=== PATIENT | female | born 2000 | race Caucasian/White ===

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

== ENCOUNTER 2018-05-10 11:53 | Emergency (ER) | payer OTHER ==
[2018-05-10 12:11] VITALS: TEMP 97.9; BMI 35.4
--- NOTE | 2018-05-10 12:38 | PDOC ---
History of Present Illness - General Chief Complaint: Pain Stated Complaint: ABD PAIN Time Seen by Provider: 05/10/18 12:37 - History of Present Illness Initial Comments: 05/10/18 13:45 Ms. oRper is a 17 yo female w/ pmh of PCOS who presents for evaluation of 1 week history of abdominal cramping and vaginal pain with discharge. She reports she typically gets cramping before her period however the vaginal pain concerned her. She has no other complaints at this time. The patient denies chest pain, shortness of breath, headache and dizziness. Denies fever, chills, nausea, vomit, diarrhea and constipation. Denies dysuria, frequency, urgency and hematuria. Allergies: NKDA Past History - Past Medical History Allergies/Adverse Reactions: Allergies Allergy/AdvReac Type Severity Reaction Status Date / Time No Known Allergies Allergy Verified 05/10/18 12:11 Home Medications: Ambulatory Orders Norgestimate-Ethinyl Estradiol [Sprintec 28 Day Tablet] 1 each PO DAILY Clotrimazole [3-Day Vaginal Cream] 21 gm VG DAILY 3 Days #1 cream.appl 05/10/18 COPD: No DVT: No Dementia: No Kidney Stones: Yes - Immunization History Immunization Up to Date: Yes - Suicide/Smoking/Psychosocial Hx Smoking Status: No Smoking History: Never smoked Have you smoked in the past 12 months: No Number of Cigarettes Smoked Daily: 0 Cigars Per Day: 0 Information on smoking cessation initiated: No Hx Alcohol Use: No Drug/Substance Use Hx: No Substance Use Type: None Review of Systems - Review of Systems Comments:: 05/10/18 13:46 GENERAL/CONSTITUTIONAL: No fever or chills. No weakness. HEAD, EYES, EARS, NOSE AND THROAT: No change in vision. No ear pain or discharge. No sore throat. CARDIOVASCULAR: No chest pain or shortness of breath RESPIRATORY: No cough, wheezing, or hemoptysis. GASTROINTESTINAL: No nausea, vomiting, diarrhea or constipation. GENITOURINARY: +Dysuria for the past week as well as vaginal pain constantly MUSCULOSKELETAL: No joint or muscle swelling or pain. No neck or back pain. SKIN: No rash NEUROLOGIC: No headache, vertigo, loss of consciousness, or change in strength/ sensation. ENDOCRINE: No increased thirst. No abnormal weight change HEMATOLOGIC/LYMPHATIC: No anemia, easy bleeding, or history of blood clots. ALLERGIC/IMMUNOLOGIC: No hives or skin allergy. *Physical Exam - Vital Signs Last Vital Signs Temp Pulse Resp BP Pulse Ox 97.9 F 66 16 142/70 100 05/10/18 11:55 05/10/18 11:55 05/10/18 11:55 05/10/18 11:55 05/10/18 11:55 - Physical Exam Comments: 05/10/18 13:46 GENERAL: Awake, alert, and fully oriented, in no acute distress HEAD: No signs of trauma, normocephalic, atraumatic EYES: PERRLA, EOMI, sclera anicteric, conjunctiva clear ENT: Auricles normal inspection, hearing grossly normal, nares patent, oropharynx clear without exudates. Moist mucosa NECK: Normal ROM, supple, no lymphadenopathy, JVD, or masses LUNGS: No distress, speaks full sentences, clear to auscultation bilaterally HEART: Regular rate and rhythm, normal S1 and S2, no murmurs, rubs or gallops, peripheral pulses normal and equal bilaterally. ABDOMEN: Soft, nontender, normoactive bowel sounds. No guarding, no rebound. No masses EXTREMITIES: Normal inspection, Normal range of motion, no edema. No clubbing or cyanosis. NEUROLOGICAL: Cranial nerves II through XII grossly intact. Normal speech, normal gait, no focal sensorimotor deficits SKIN: Warm, Dry, normal turgor, no rashes or lesions noted. : +White thick discharge noted. No CMT, no adnexal tenderness, no blood noted in vaginal vault, os closed. Medical Decision Making - Medical Decision Making 05/10/18 17:16 Ms. Roper is a 17 yo female w/ pmh as described who presents for evaluation of vaginal pain. Patient found to have yeast infection on exam. Clotrimazole given for treatment. Patient also noted to be ; transvaginal exam unable to appreciate. Discharging patient w/ instructions to f/u in 2 days for repeat evaluation. Patient verbalized understanding and agreement and will comply. *DC/Admit/Observation/Transfer Diagnosis at time of Disposition: Vaginal pain Qualifiers: Weeks of gestation: less than 8 weeks Qualified Code(s): Z3A.01 - Less than 8 weeks gestation of - Discharge Dispostion Disposition: HOME - Prescriptions Prescriptions: Clotrimazole [3-Day Vaginal Cream] 21 gm VG DAILY 3 Days #1 cream.appl - Referrals Referrals: Pritesh Arndt MD [Primary Care Provider] - - Patient Instructions Printed Discharge Instructions: DI for -- Discomforts and Remedies Additional Instructions: Please return in 2 days for further evaluation. Take all medications as proscribed. Return to ER if any increase in pain, fever, chills, or other concerning symptoms. - Post Discharge Activity
[2018-05-10 13:47] LABS: URINE APPEARANCE CLEAR; URINE BILIRUBIN NEGATIVE (<2.0 mg/dL); URINE COLOR YELLOW; URINE GLUCOSE (UA) NEGATIVE (NEGATIVE); URINE KETONE NEGATIVE (NEGATIVE); URINE NITRITE NEGATIVE (NEGATIVE); URINE PROTEIN NEGATIVE (NEGATIVE); URINE UROBILINOGEN NEGATIVE mg/dL (0.2-1.0)
[2018-05-10 13:50] LABS: HCG,QUALITATIVE URINE INDETERMINATE
[2018-05-10 13:52] LABS: URINE LEUK ESTERASE 3+ (NEGATIVE)
[2018-05-10 14:02] LABS: EPI CELLS MANY /HPF (FEW); URINE MUCUS RARE
--- NOTE | 2018-05-10 14:59 | PDOC ---
Attending Attestation - HPI HPI: 05/10/18 15:09 The patient is a 17-year-old female, with a past medical history of kidney stones and PCOS, who presents to the ED with 1 week of abdominal cramping and vaginal discharge. The patient denies any fever, chills, nausea, vomiting, or diarrhea. Denies any dysuria, frequency, urgency, hesitancy, or hematuria. Allergies: NKA Surgical History: None reported Social History: None reported PCP: Dr. Pritesh Arndt - Physicial Exam PE: 05/10/18 15:10 Vitals: Triage Vital signs reviewed General Appearance: no acute distress, well nourished well developed, Head: Atraumatic, normocephalic Eyes: Pupils equal reactive round, extraocular movement intact Neck: Supple;No Nuchal rigidity Chest Wall: Nontender Cardiac: Regular rate and rhythm, no murmurs, no rubs, no gallops, Lungs: Clear to auscultation bilateral, good air movement bilaterally, Abdomen: Soft, nondistended, normal bowel sounds, nontender to palpation Rectal: Exam deferred Extremities: Full range of motion to all extremities, no cyanosis, clubbing, or edema Skin: Warm and dry, no rashes or lesions, no petechiae Psych: normal mood, normal affect - Medical Decision Making 05/10/18 15:20 Plan: -Labs -[facility] [place] The patient is a 17-year-old female, with a past medical history of kidney stones and PCOS, who presents to the ED with 1 week of abdominal cramping and vaginal discharge. <Yessica Camejo - Last Filed: 05/10/18 17:04> - Resident Resident Name: Guzman Lazaro - ED Attending Attestation I have performed the following: I have examined & evaluated the patient, The case was reviewed & discussed with the resident, I agree w/resident's findings & plan, Exceptions are as noted - Medical Decision Making Patient presents with crampy abdominal discomfort and vaginal discharge consistent with Ke[place] infection. Well-appearing no apparent distress no abdominal discomfort. Patient's laboratory analysis notable for very slightly detectable hCG her ultrasound demonstrates no intrauterine Differential diagnosis includes very early versus ectopic Patient advised return to the ED or follow-up with her [employer] in 2 days for repeat blood work and repeat ultrasound Very strict ectopic return precautions discussed with patient. Findings, need for follow-up and strict return instructions discussed. <Chris Ascencio - Last Filed: 05/10/18 19:22> Attestations - Attestations 05/10/18 15:10 Documentation prepared by Yessica Camejo, acting as medical coding auditor for Chris Ascencio MD. <Yessica Camejo - Last Filed: 05/10/18 17:04>
[2018-05-10 17:27] VITALS: BP 132/65; PULSE 63
== END 2018-05-10 17:27 | disposition home or self-care (01) ==
LOC: JER 11:53
DX: O26.891 Other specified pregnancy related conditions, first trimester (principal); O98.811 Other maternal infectious and parasitic diseases complicating pregnancy, first trimester; B37.3 Candidiasis of vulva and vagina; Z3A.01 Less than 8 weeks gestation of pregnancy
CPT/HCPCS: 36415; 76817-TC; 81003; 81015; 84702; 84703; 87086; 99283-25

== ENCOUNTER 2019-01-03 19:19 | Emergency (ER) | payer OTHER ==
[2019-01-03 19:32] VITALS: BP 141/89; PULSE 74; TEMP 98.4; BMI 34.5
--- NOTE | 2019-01-03 19:36 | PDOC ---
History of Present Illness - History of Present Illness Initial Comments: The patient is a 18 year old female, with a significant PMH of UTI, kidney stones, PCOS, who presents to the emergency department today complaining of a headache for 1 week, and abdominal pain for 4 days. Patient notes that her headache began last week, without any specific cause. She notes it has gotten progressively worse, and rates it as a 10/10. She reports associated lightheadedness, room-spinning dizziness, photophobia, nausea (without vomit), and generalized weakness. Patient has tried Tylenol without relief. Patient also notes diffuse abdominal pain that began 4 days ago. She reports that the pain is worst in bilateral lower quadrants, and radiates to her right flank. Patient was treated for a UTI 1 month ago at an Urgent Care, and notes the symptoms feel similar but are much worse. She reports associated urinary frequency without dysuria. Patient notes she is sexually active, and has been on oral contraceptives for over a year which have helped with her history of irregular periods. Patient reports her LMP was 1 month ago, and denies vaginal discharge, odors, or history of STD. The patient denies chest pain or shortness of breath. Denies fever, chills, vomit, diarrhea and constipation. Denies dysuria, urgency and hematuria. PAST MEDICAL HISTORY: kidney stones and PCOS PAST SURGICAL HISTORY: no significant history FAMILY HISTORY: Denies family history of migraines. SOCIAL HISTORY: Pt lives with family and is employed. MEDICATIONS: reviewed ALLERGIES: NKA PCP: Dr. Pritesh Arndt Adult ROS General: +Generalized weakness. No fevers or chills, no weight loss HEENT: No change in vision. No sore throat. No ear pain CardioVascular: No chest pain or shortness of breath Respiratory:No cough, or wheezing. Gastrointestinal: +Nauseous no vomiting, diarrhea or constipation, No rectal bleeding Genitourinary: +Urinary frequency. +Sexually active. No dysuria or hematuria. Musculoskeletal: +Diffuse abdominal pain. No joint or muscle pain or swelling Neurologic: +Headache. +Room-spinning dizziness.+Lightheadedness +Photophobia. No vertigo or loss of consciousness Psychiatric: no depression Skin: No rashes or easy bruising Endocrine: no increased thirst or abnormal weight change Allergic: no skin or latex allergy All other systems reviewed and normal Adult PE Exam: General: +Mildly distressed secondary to bright lights in the room, which are bothering her headache. +Obese. Well-nourished well-developed individual. HEENT: Throat: Normal, tonsils normal, no erythema or exudate Neck: Supple, no meningeal signs, no lymphadenopathy Eyes::Pupils equal reactive and round, extraocular motion intact Chest: Nontender to palpation Cardiac: S1-S2 normal, regular rate and rhythm, no murmurs rubs or gallops Respiratory: Lungs clear to auscultation bilateral Abdomen: +Mild tenderness diffusely on palpation throughout the whole abdomen. Soft, nondistended, normal bowel sounds. Back: No back or CVA tenderness. Extremities: Warm, dry, no cyanosis, clubbing, or edema Skin: No rashes Neuro: Alert and oriented x3, nonfocal exam, grossly intact, normal gait Psych: Normal mood and affect 01/03/19 20:14 <Nayeli Bond - Last Filed: 01/03/19 20:14> - General History Source: Patient Exam Limitations: No Limitations - History of Present Illness Initial Comments: 01/03/19 20:34 A portion of this note was documented by scribe services under my direction. I have reviewed the details of the note, within reason, and agree with the documentation with the following case summary and management plan written by me. Patient treated in the ED. Nursing notes are reviewed and incorporated into the medical decision-making. Vital signs reviewed. Assessment and plan: This is a 18-year-old female with history of polycystic ovary disease, obesity, urinary tract infections and kidney stones who comes in complaining of a headache. Patient describes it as 10 over 10. Patient said she has had a headache now for 1 week. Patient however is only taken intermittent Tylenol for the headache. Patient has not seen anybody for the headache. Patient did appear to be photophobic. Patient also complained of lower abdominal pain. Patient reported diffuse discomfort with palpation. Workup initiated including CBC, comp, lipase, urinalysis, urine culture, urine test 01/03/19 21:19 Reevaluation: Patient feels much better after fluids and pain medication. Patient smiling taxing on her phone and awaiting CT scan. 01/03/19 23:15 CAT scan results show no acute pathology of the abdomen pelvis or head Assessment and plan: This is a 18-year-old female with headache and abdominal pain. Patient given Toradol, Reglan, Zofran, fluids and workup was obtained. Patient's symptoms improved and nearly resolved while here in the ED patient is now comfortable and without complaint. Patient given copies of her CAT scans and discharged home <Prabhu Back I - Last Filed: 01/03/19 23:17> - General Chief Complaint: Headache Stated Complaint: HEADACHE/NAUSEA Time Seen by Provider: 01/03/19 19:22 Past History <Nayeli Bond - Last Filed: 01/03/19 20:14> - Past Medical History COPD: No DVT: No Dementia: No Kidney Stones: Yes - Reproductive History (#): 1 Para: 0 Spontaneous : 1 - Immunization History Immunization Up to Date: Yes - Suicide/Smoking/Psychosocial Hx Smoking Status: No Smoking History: Never smoked Have you smoked in the past 12 months: No Number of Cigarettes Smoked Daily: 0 Cigars Per Day: 0 Hx Alcohol Use: No Drug/Substance Use Hx: No Substance Use Type: None <Prabhu Back I - Last Filed: 01/03/19 23:17> - Past Medical History Allergies/Adverse Reactions: Allergies Allergy/AdvReac Type Severity Reaction Status Date / Time No Known Allergies Allergy Verified 05/10/18 12:11 Home Medications: Ambulatory Orders Norgestimate-Ethinyl Estradiol [Sprintec 28 Day Tablet] 1 each PO DAILY *Physical Exam - Vital Signs Last Vital Signs Temp Pulse Resp BP Pulse Ox 98.4 F 74 18 141/89 99 01/03/19 19:25 01/03/19 19:25 01/03/19 19:25 01/03/19 19:25 01/03/19 19:25 <Nayeli Bond - Last Filed: 01/03/19 20:14> - Vital Signs Last Vital Signs Temp Pulse Resp BP Pulse Ox 98.4 F 74 18 141/89 99 01/03/19 19:25 01/03/19 19:25 01/03/19 19:25 01/03/19 19:25 01/03/19 19:25 <Prabhu Back I - Last Filed: 01/03/19 23:17> Moderate Sedation - Procedure Monitoring Vital Signs: Procedure Monitoring Vital Signs Temperature 98.4 F 01/03/19 19:25 Pulse Rate 74 01/03/19 19:25 Respiratory Rate 18 01/03/19 19:25 Blood Pressure 141/89 01/03/19 19:25 O2 Sat by Pulse Oximetry (%) 99 01/03/19 19:25 <Nayeli Bond - Last Filed: 01/03/19 20:14> - Procedure Monitoring Vital Signs: Procedure Monitoring Vital Signs Temperature 98.4 F 01/03/19 19:25 Pulse Rate 74 01/03/19 19:25 Respiratory Rate 18 01/03/19 19:25 Blood Pressure 141/89 01/03/19 19:25 O2 Sat by Pulse Oximetry (%) 99 01/03/19 19:25 <Prabhu Back I - Last Filed: 01/03/19 23:17> ED Treatment Course - LABORATORY CBC & Chemistry Diagram: 01/03/19 20:04 01/03/19 20:04 - ADDITIONAL ORDERS Additional order review: Laboratory Results 01/03/19 19:29 Urine Color Yellow Urine Appearance Clear Urine pH 6.0 Ur Specific Webb >= 1.030 Urine Protein Negative Urine Glucose (UA) Negative Urine Ketones Negative Urine Blood Trace-intact H Urine Nitrite Negative Urine Bilirubin Negative Urine Urobilinogen 0.2 Ur Leukocyte Esterase 1+ H Urine HCG, Qual Negative - Medications Given in the ED: ED Medications Discontinued Medications Generic Name Dose Route Start Last Admin Trade Name Freq PRN Reason Stop Dose Admin Ketorolac Tromethamine 30 mg 01/03/19 19:56 01/03/19 20:08 Toradol Injection - IVPUSH 01/03/19 19:57 30 mg ONCE ONE Administration Metoclopramide HCl 10 mg 01/03/19 19:58 01/03/19 20:08 Reglan Injection - IVPUSH 01/03/19 19:59 10 mg ONCE ONE Administration <Nayeli Bond - Last Filed: 01/03/19 20:14> - LABORATORY CBC & Chemistry Diagram: 01/03/19 20:04 01/03/19 20:04 <Prabhu Back I - Last Filed: 01/03/19 23:17> *DC/Admit/Observation/Transfer - Attestations Scribe Attestion: Documentation prepared by LARRY Bingham, acting as district medical examiner for Prabhu Back MD. 01/03/19 20:15 <Nayeli Bnod - Last Filed: 01/03/19 20:14> - Discharge Dispostion Decision to Admit order: No <Prabhu Back I - Last Filed: 01/03/19 23:17> Diagnosis at time of Disposition: Nausea, Abdominal pain Headache Qualifiers: Headache type: unspecified Headache chronicity pattern: unspecified pattern Intractability: not intractable Qualified Code(s): R51 - Headache - Discharge Dispostion Disposition: HOME Condition at time of disposition: Stable - Referrals Referrals: Pritesh Arndt MD [Primary Care Provider] - - Patient Instructions Additional Instructions: Return to the emergency department immediately with ANY new, persistent or worsening symptoms. Continue any medications as previously prescribed by your physician. You should follow up with your primary doctor as soon as possible regarding today's emergency department visit. . Please make sure your doctor reviews the results of your emergency evaluation. Thank you for coming to the Emergency Department today for your care. It was a pleasure to see you today. Please note that your evaluation is INCOMPLETE until you follow-up with your doctor. - Post Discharge Activity
[2019-01-03 19:45] LABS: URINE APPEARANCE Clear; URINE BILIRUBIN Negative (NEGATIVE); URINE COLOR Yellow; URINE GLUCOSE (UA) Negative (NEGATIVE); URINE KETONE Negative (NEGATIVE); URINE LEUK ESTERASE 1+ (NEGATIVE); URINE NITRITE Negative (NEGATIVE); URINE PROTEIN Negative (NEGATIVE); URINE UROBILINOGEN 0.2 (0.2-1.0)
[2019-01-03 19:51] LABS: HCG,QUALITATIVE URINE Negative
[2019-01-03] MEDS ORDERED: KETOROLAC TROMETHAMINE 30 MG/1 ML VIAL IVPUSH ONE (19:56)
[2019-01-03] MEDS ORDERED: METOCLOPRAMIDE HCL INJECTION 10 MG/2 ML VIAL IVPUSH ONE (19:58)
[2019-01-03] MEDS ORDERED: KETOROLAC TROMETHAMINE 30 MG/1 ML VIAL ONE (20:04)
[2019-01-03] MEDS ORDERED: METOCLOPRAMIDE HCL INJECTION 10 MG/2 ML VIAL ONE (20:05)
[2019-01-03] MEDS ORDERED: ONDANSETRON 4 MG/2 ML VIAL ONE (20:17)
[2019-01-03 20:20] LABS: BASO % 0.6 % (0-2.0); EOS % 0.1 % (0-4.5); HEMATOCRIT 42.3 % (32.4-45.2); HEMOGLOBIN 13.8 GM/dl (10.7-15.3); LYMPH % 22.5 % (8-40); MCH 30.7 pg (25.7-33.7); MCHC 32.6 g/dl (32.0-36.0); MEAN CELL VOLUME 94.2 fl (80-96); MEAN PLT VOLUME 8.6 fl (7.5-11.1); MONO % 6.3 % (3.8-10.2); NEUT % 70.5 % (42.8-82.8); PLATELET COUNT 374 K/MM3 (134-434); RBC 4.49 M/mm3 (3.60-5.2); RDW 12.1 % (11.6-15.6); WHITE BLOOD COUNT 11.5 K/mm3 (4.0-10.8)
[2019-01-03 20:20] LABS: EPI CELLS FEW /HPF; URINE BACTERIA 2+ /hpf (NEGATIVE)
[2019-01-03] MEDS ORDERED: ONDANSETRON 4 MG/2 ML VIAL IVPB ONE (20:25)
[2019-01-03] MEDS ORDERED: SODIUM CHLORIDE 1,000 ML IV ONE (20:26)
[2019-01-03 20:28] LABS: ALK PHOS 57 U/L (45-117); ANION GAP 13 MMOL/L (8-16); BILIRUBIN,TOTAL 0.5 mg/dl (0.2-1); BLOOD UREA NITROGEN 15 mg/dl (7-18); CALCIUM 9.5 mg/dl (8.5-10); CHLORIDE 96 mmol/L (98-107); CO2 27 mmol/L (21-32); CREATININE 0.6 mg/dl (0.55-1.3); GLUCOSE,RANDOM 92 mg/dl (74-106); POTASSIUM 4.1 mmol/L (3.5-5.1); SGOT/AST 24 U/L (15-37); SGPT/ALT 22 U/L (13-61); SODIUM 136 mmol/L (136-145); TOT PROT 7.6 g/dl (6.4-8.2)
[2019-01-03 21:31] LABS: LIPASE 125 U/L (73-393)
== END 2019-01-03 23:31 | disposition home or self-care (01) ==
LOC: FER 19:19
PROC: 3E0333Z Introduction of Anti-inflammatory into Peripheral Vein, Percutaneous Approach (ICD-10-PCS; principal; 2019-01-03)
PROC: 3E0337Z Introduction of Electrolytic and Water Balance Substance into Peripheral Vein, Percutaneous Approach (ICD-10-PCS; 2019-01-03)
PROC: 3E033GC Introduction of Other Therapeutic Substance into Peripheral Vein, Percutaneous Approach (ICD-10-PCS; 2019-01-03)
DX: R51 Headache (principal); R10.9 Unspecified abdominal pain; R11.0 Nausea
CPT/HCPCS: 36415; 70450-TC; 74150-TC; 80053; 81003; 81015; 83690; 84703; 85025; 99283-25; J7030

== ENCOUNTER 2019-08-28 13:13 | Emergency (ER) | payer SELFPAY ==
[2019-08-28 13:21] VITALS: BP 163/98; PULSE 90; TEMP 98.1; BMI 38.9
--- NOTE | 2019-08-28 13:23 | PDOC ---
Rapid Medical Evaluation Chief Complaint: Pain, Acute Time Seen by Provider: 08/28/19 13:23 Medical Evaluation: Allergies Allergy/AdvReac Type Severity Reaction Status Date / Time No Known Allergies Allergy Verified 08/28/19 13:22 Vital Signs Temp Pulse Resp BP Pulse Ox 98.1 F 90 16 163/98 96 08/28/19 13:19 08/28/19 13:19 08/28/19 13:19 08/28/19 13:19 08/28/19 13:19 08/28/19 13:30 I have performed a brief in-person evaluation of this patient. The patient presents with a chief complaint of: right flank pain Pertinent physical exam findings:stable and in NAD, non-focal I have ordered the following:labs The patient will proceed to the ED for further evaluation.
[2019-08-28] MEDS ORDERED: ONDANSETRON 4 MG/2 ML VIAL IVPUSH ONE (13:47)
[2019-08-28] MEDS ORDERED: SODIUM CHLORIDE 1,000 ML IV STA (13:47)
[2019-08-28] MEDS ORDERED: KETOROLAC TROMETHAMINE 30 MG/1 ML VIAL IVPUSH ONE (13:47)
[2019-08-28] MEDS ORDERED: KETOROLAC TROMETHAMINE 30 MG/1 ML VIAL ONE (13:49)
[2019-08-28] MEDS ORDERED: ONDANSETRON 4 MG/2 ML VIAL ONE (13:50)
--- NOTE | 2019-08-28 13:50 | PDOC ---
History of Present Illness - General Chief Complaint: Pain, Acute Stated Complaint: LOWER BACK PAIN Time Seen by Provider: 08/28/19 13:23 History Source: Patient - History of Present Illness Timing/Duration: reports: constant, getting worse Quality: reports: moderate Abdominal Pain Onset Location: reports: flank Pain Radiation: reports: groin Past History - Past Medical History Allergies/Adverse Reactions: Allergies Allergy/AdvReac Type Severity Reaction Status Date / Time No Known Allergies Allergy Verified 08/28/19 13:22 Home Medications: Ambulatory Orders Norgestimate-Ethinyl Estradiol [Sprintec 28 Day Tablet] 1 each PO DAILY Ondansetron HCl [Zofran] 4 mg PO ASDIR #12 tablet 08/28/19 Tamsulosin HCl [Flomax] 0.4 mg PO DAILY #7 capsule 08/28/19 COPD: No DVT: No Dementia: No Disorders: Yes (PCOS) Kidney Stones: Yes - Reproductive History (#): 1 Para: 0 Spontaneous : 1 - Immunization History Immunization Up to Date: Yes - Psycho Social/Smoking Cessation Hx Smoking Status: No Smoking History: Never smoked Have you smoked in the past 12 months: No Number of Cigarettes Smoked Daily: 0 Cigars Per Day: 0 Hx Alcohol Use: No Drug/Substance Use Hx: No Substance Use Type: None Review of Systems - Review of Systems Constitutional: No: Chills, Fever ABD/GI: Yes: Nausea. No: Constipated, Diarrhea, Vomiting : Yes: Dysuria, Flank Pain. No: Discharge, Hematuria *Physical Exam - Vital Signs Last Vital Signs Temp Pulse Resp BP Pulse Ox 98.1 F 90 16 163/98 96 08/28/19 13:19 08/28/19 13:19 08/28/19 13:19 08/28/19 13:19 08/28/19 13:19 - Physical Exam General Appearance: Yes: Appropriately Dressed, Mild Distress HEENT: positive: Normal Voice Neck: positive: Supple Respiratory/Chest: negative: Respiratory Distress Gastrointestinal/Abdominal: positive: Tender (poorly localized ttp to R side of abd, no overt CVAT) Extremity: positive: Normal Inspection Integumentary: positive: Dry, Warm Neurologic: positive: Fully Oriented, Alert, Normal Mood/Affect ED Treatment Course - LABORATORY CBC & Chemistry Diagram: 08/28/19 13:45 08/28/19 13:45 - RADIOLOGY Radiology Studies Ordered: Category Date Time Status ABDOMEN & PELVIS CT W/O CONTR [CT] Stat CT Scan 08/28/19 13:44 Ordered Medical Decision Making - Medical Decision Making 08/28/19 13:45 18-year-old female history of kidney stones no surgeries here with severe rent right flank pain with dysuria that started this a.m. States symptoms feel similar to her stone. + nausea no vomiting hematuria fever or chills See exam Possible renal colic vs UTI/pyelo vs, less likely, appy -pain control -IVF -zofran -labs -CT 08/28/19 15:32 Labs unremarkable. UA w/ 3+ blood w/ 5 wbc and 81 kristi, ucx sent. Will hold off on abx at this time. CT shows 2 mm right UVJ stone with mild hydro. Patient states symptoms have resolved with meds. Stable for discharge with supportive treatment, strainer for stone and follow-up. Reasons to return discussed with patient Discharge - Discharge Information Problems reviewed: Yes Clinical Impression/Diagnosis: Flank pain, Renal stone Condition: Improved Disposition: HOME - Additional Discharge Information Prescriptions: Ondansetron HCl [Zofran] 4 mg PO ASDIR #12 tablet Tamsulosin HCl [Flomax] 0.4 mg PO DAILY #7 capsule - Follow up/Referral Referrals: Pritesh Arndt MD [Primary Care Provider] - Jese Porras MD [Staff Physician] - - Patient Discharge Instructions Patient Printed Discharge Instructions: Kidney Stones -- Adult Additional Instructions: Your CAT scan shows a 2 mm stone near your bladder. There is an 80% chance that you will pass stone in 1-3 days. In the meantime, take medications as prescribed. You can purchase Motrin [id number] as discussed. Once her insurance is active, you can follow-up with Dr. Porras of urology - Post Discharge Activity Work/Back to School Note: Back to Work
[2019-08-28 13:58] LABS: EPI CELLS 7.1 /HPF (0-5/HPF); HYALINE CASTS 3 /lpf (0-8); PH,URINE 7.5 (5.0-8.0); URINE APPEARANCE CLOUDY; URINE BACTERIA 81.2 /hpf (NEGATIVE); URINE BILIRUBIN NEGATIVE (NEGATIVE); URINE COLOR ORANGE; URINE GLUCOSE (UA) NEGATIVE (NEGATIVE); URINE KETONE NEGATIVE (NEGATIVE); URINE LEUK ESTERASE 1+ (NEGATIVE); URINE NITRITE NEGATIVE (NEGATIVE); URINE PROTEIN TRACE (NEGATIVE); URINE RBC 1016 /hpf (0-4); URINE UROBILINOGEN 0.2 mg/dL (0.2-1.0); URINE WBC 5 /hpf (0-5)
[2019-08-28 14:10] LABS: BASO % 0.2 % (0-2.0); EOS % 0.1 % (0-4.5); HEMATOCRIT 42.4 % (32.4-45.2); HEMOGLOBIN 14.6 GM/dL (10.7-15.3); LYMPH % 14.5 % (8-40); MCH 32.2 pg (25.7-33.7); MCHC 34.5 g/dl (32.0-36.0); MEAN CELL VOLUME 93.6 fl (80-96); MEAN PLT VOLUME 8.5 fl (7.5-11.1); MONO % 5.7 % (3.8-10.2); NEUT % 79.5 % (42.8-82.8); PLATELET COUNT 347 K/MM3 (134-434); RBC 4.53 M/mm3 (3.60-5.2); WHITE BLOOD COUNT 13.2 K/mm3 (4.0-10.0)
[2019-08-28 14:37] LABS: BILIRUBIN,TOTAL 0.2 mg/dL (0.2-1); CALCIUM 9.4 mg/dL (8.5-10.1); CREATININE 0.6 mg/dL (0.55-1.3); POTASSIUM 4.1 mmol/L (3.5-5.1); TOT PROT 7.7 g/dl (6.4-8.2)
[2019-08-28] MEDS ORDERED: TAMSULOSIN HCL 0.4 MG CAP PO ONE (15:31)
== END 2019-08-28 13:50 | disposition home or self-care (01) ==
LOC: JER 13:13
PROC: 3E0333Z Introduction of Anti-inflammatory into Peripheral Vein, Percutaneous Approach (ICD-10-PCS; principal; 2019-08-28)
PROC: 3E033GC Introduction of Other Therapeutic Substance into Peripheral Vein, Percutaneous Approach (ICD-10-PCS; 2019-08-28)
PROC: 3E0337Z Introduction of Electrolytic and Water Balance Substance into Peripheral Vein, Percutaneous Approach (ICD-10-PCS; 2019-08-28)
DX: R10.31 Right lower quadrant pain (principal); N20.0 Calculus of kidney; E28.2 Polycystic ovarian syndrome
CPT/HCPCS: 36415; 74176-TC; 80053; 81003; 84703; 85025; 87086; 99283-25; J7030

== ENCOUNTER 2021-02-15 11:54 | Emergency (ER) | payer OTHER ==
[2021-02-15 12:29] VITALS: BP 116/77; PULSE 92; TEMP 98; BMI 35.4
[2021-02-15] MEDS ORDERED: DEXAMETHASONE SOD PHOSPHATE 10 MG/1 ML VIAL ONE (13:17)
[2021-02-15] MEDS ORDERED: DEXAMETHASONE 4 MG TABLET (FP) PO ONE (13:18)
[2021-02-15] MEDS ORDERED: DEXAMETHASONE LIQUID 0.5 MG/5 ML PO ONE (13:22)
== END 2021-02-15 13:32 | disposition home or self-care (01) ==
LOC: JER 11:54
DX: R50.9 Fever, unspecified (principal); R05 Cough; Z11.52 Encounter for screening for COVID-19
CPT/HCPCS: 99283-25; C9803; U0003; U0005

== ENCOUNTER 2021-07-05 10:56 | Emergency (ER) | payer OTHER ==
[2021-07-05 11:11] VITALS: BP 130/82; PULSE 78; TEMP 97.6; BMI 38.0
[2021-07-05] MEDS ORDERED: ACETAMINOPHEN 500 MG TABLET (FP) PO ONE (12:31)
[2021-07-05 13:18] LABS: HEMATOCRIT 40.1 % (32.4-45.2); HEMOGLOBIN 13.8 GM/dL (10.7-15.3); MCH 31.5 pg (25.7-33.7); MCHC 34.5 g/dl (32.0-36.0); MEAN CELL VOLUME 91.4 fl (80-96); MEAN PLT VOLUME 8.3 fl (7.5-11.1); PLATELET COUNT 367 10^3/uL (134-434); RBC 4.39 M/mm3 (3.60-5.2); RDW 12.7 % (11.6-15.6); WHITE BLOOD COUNT 10.7 K/mm3 (4.0-10.0)
[2021-07-05 13:35] LABS: HCG,QUALITATIVE URINE Negative
[2021-07-05 13:36] LABS: EPI CELLS >36 /uL (0-25.1); HYALINE CASTS 2 /uL (0-3.1); URINE APPEARANCE CLOUDY; URINE BACTERIA 634 /uL (0-1359); URINE BILIRUBIN NEGATIVE (NEGATIVE); URINE COLOR YELLOW; URINE GLUCOSE (UA) NEGATIVE (NEGATIVE); URINE KETONE NEGATIVE (NEGATIVE); URINE LEUK ESTERASE TRACE (NEGATIVE); URINE NITRITE NEGATIVE (NEGATIVE); URINE PROTEIN NEGATIVE (NEGATIVE); URINE RBC 13 /uL (0-23.9); URINE UROBILINOGEN 0.2 mg/dL (0.2-1.0); URINE WBC 42 /uL (0-25.8)
[2021-07-05] MEDS ORDERED: ACETAMINOPHEN 325 MG TABLET (FP) ONE (13:36)
[2021-07-05 13:38] LABS: CREATININE 0.6 mg/dL (0.55-1.3)
[2021-07-05] MEDS ORDERED: KETOROLAC TROMETHAMINE 30 MG/1 ML VIAL IM ONE (15:03)
[2021-07-05] MEDS ORDERED: KETOROLAC TROMETHAMINE 30 MG/1 ML VIAL ONE (15:09)
== END 2021-07-05 15:16 | disposition home or self-care (01) ==
LOC: JER 10:56
DX: N94.6 Dysmenorrhea, unspecified (principal)
CPT/HCPCS: 36415; 76830-TC; 80048; 81003; 84703; 85027; 87086; 99284-25

== ENCOUNTER 2021-07-30 09:30 | Emergency (ER) | payer OTHER ==
[2021-07-30 09:41] VITALS: BP 132/70; PULSE 65; TEMP 97.7; BMI 31.8
== END 2021-07-30 10:12 | disposition home or self-care (01) ==
LOC: JER 09:30
DX: R05 Cough (principal); J02.9 Acute pharyngitis, unspecified; R50.9 Fever, unspecified; Z11.52 Encounter for screening for COVID-19
CPT/HCPCS: 99283-25; C9803; U0003; U0005

== ENCOUNTER 2021-09-01 19:13 | Emergency (ER) | payer OTHER ==
[2021-09-01 19:23] VITALS: BP 119/103; PULSE 72; TEMP 98; BMI 36.6
[2021-09-01] MEDS ORDERED: AZITHROMYCIN 250 MG TABLET PO ONE (19:51)
[2021-09-01] MEDS ORDERED: AZITHROMYCIN 250 MG TABLET ONE (19:52)
== END 2021-09-01 20:07 | disposition home or self-care (01) ==
LOC: FER 19:13
DX: J02.9 Acute pharyngitis, unspecified (principal)
CPT/HCPCS: 99283-25

== ENCOUNTER 2021-11-08 23:31 | Emergency (ER) | payer OTHER ==
[2021-11-08 23:42] VITALS: BMI 36.6
[2021-11-09 00:24] VITALS: BP 142/93; PULSE 88; TEMP 99.3
[2021-11-10 09:07] LABS: SARS-CoV-2 NAA Not Detected (Not Detected)
== END 2021-11-09 01:38 | disposition home or self-care (01) ==
LOC: FER 23:31
DX: R09.81 Nasal congestion (principal); J02.9 Acute pharyngitis, unspecified; R05.1 Acute cough
CPT/HCPCS: 87804; 99283-25; C9803; U0003; U0005

== ENCOUNTER 2022-01-22 00:04 | Emergency (ER) | payer OTHER ==
[2022-01-22 00:28] VITALS: BP 127/79; PULSE 85; TEMP 98; BMI 40.7
[2022-01-22] MEDS ORDERED: ASPIRIN 81 MG CHEWABLE TABLETS PO ONE (01:02)
[2022-01-22] MEDS ORDERED: ACETAMINOPHEN 1000 MG/100 ML BAG IVPB ONE (01:04)
[2022-01-22] MEDS ORDERED: ASPIRIN 81 MG CHEWABLE TABLETS ONE (01:30)
[2022-01-22] MEDS ORDERED: ACETAMINOPHEN INJECTION 100 ML IVPB ONE (01:30)
[2022-01-22 01:45] LABS: BASO % 0.4 % (0-2.0); EOS % 0.7 % (0-4.5); HEMATOCRIT 39.8 % (32.4-45.2); HEMOGLOBIN 13.7 GM/dL (10.7-15.3); LYMPH % 27.7 % (8-40); MCH 31.3 pg (25.7-33.7); MCHC 34.3 g/dl (32.0-36.0); MEAN CELL VOLUME 91.3 fl (80-96); MONO % 7.3 % (3.8-10.2); NEUT % 63.9 % (42.8-82.8); PLATELET COUNT 361 10^3/uL (134-434); RBC 4.36 M/mm3 (3.60-5.2); RDW 13.2 % (11.6-15.6); WHITE BLOOD COUNT 9.3 K/mm3 (4.0-10.0)
[2022-01-22 01:56] LABS: INR 1.15 (0.83-1.09); PROTHROMBIN TIME (PATIENT) 13.2 SEC (9.7-13.0)
[2022-01-22 01:59] LABS: ACTIVATED PTT 31.3 SECONDS (25.2-36.5)
[2022-01-22 02:05] LABS: CALCIUM 9.5 mg/dL (8.5-10.1)
[2022-01-22 02:06] LABS: ALBUMIN 3.8 g/dl (3.4-5.0); BLOOD UREA NITROGEN 12.9 mg/dL (7-18); MAGNESIUM 2.1 mg/dL (1.8-2.4)
[2022-01-22 02:09] LABS: CREATININE 0.6 mg/dL (0.55-1.3)
[2022-01-22 02:11] LABS: BILIRUBIN,TOTAL 0.1 mg/dL (0.2-1); TOT PROT 7.6 g/dl (6.4-8.2)
== END 2022-01-22 03:36 | disposition home or self-care (01) ==
LOC: JER 00:04
PROC: 3E033GC Introduction of Other Therapeutic Substance into Peripheral Vein, Percutaneous Approach (ICD-10-PCS; principal; 2022-01-22)
DX: R07.1 Chest pain on breathing (principal)
CPT/HCPCS: 36415; 71046-TC-FY; 80053; 83735; 84484; 84703; 85025; 85379; 85610; 85730; 93005; 93010; 99285-25

== ENCOUNTER 2022-06-23 17:05 | Emergency (ER) | payer OTHER ==
[2022-06-23 17:16] VITALS: BP 134/81; PULSE 103; RESP 18; TEMP 100; BMI 33.8
== END 2022-06-23 17:39 | disposition home or self-care (01) ==
LOC: FER 17:05
DX: J06.9 Acute upper respiratory infection, unspecified (principal)
CPT/HCPCS: 0241U-QW; 99283-25

== ENCOUNTER 2022-10-13 14:15 | Emergency (ER) | payer OTHER ==
[2022-10-13 14:30] VITALS: BP 119/64; PULSE 66; RESP 16; TEMP 99; BMI 29.2
[2022-10-13] MEDS ORDERED: METOCLOPRAMIDE HCL INJECTION 10 MG/2 ML VIAL IVPUSH ONE (15:04)
[2022-10-13] MEDS ORDERED: METOCLOPRAMIDE HCL INJECTION 10 MG/2 ML VIAL ONE (15:30)
[2022-10-13 15:51] LABS: EPITHELIAL CELLS FEW /hpf
[2022-10-13 16:01] LABS: HEMOGLOBIN 14.3 G/dL (10.7-15.3); MCH 32.4 pg (25.7-33.7); MCHC 33.3 g/dl (32.0-36.0); MEAN CELL VOLUME 97.2 fl (80-96); MEAN PLT VOLUME 8.8 fl (7.5-11.1); PLATELET COUNT 329.9 10^3/uL (134-434); RBC 4.42 10^6/uL (3.60-5.2); RDW 13.5 % (11.6-15.6); WHITE BLOOD COUNT 9.9 10^3/uL (4.0-10.8)
[2022-10-13 16:11] LABS: ALBUMIN 4.4 g/dl (3.4-5.0); BILIRUBIN,TOTAL 0.8 mg/dl (0.2-1); CALCIUM 9.2 mg/dl (8.5-10); CREATININE 0.5 mg/dl (0.55-1.3); TOT PROT 7.6 g/dl (6.4-8.2)
== END 2022-10-13 16:35 | disposition left against medical advice (07) ==
LOC: FER 14:15
PROC: 3E033GC Introduction of Other Therapeutic Substance into Peripheral Vein, Percutaneous Approach (ICD-10-PCS; principal; 2022-10-13)
DX: R10.30 Lower abdominal pain, unspecified (principal)
CPT/HCPCS: 36415; 76830-TC; 80053; 81003; 81015; 81025; 83690; 85027; 87086; 99283-25

== ENCOUNTER 2022-12-21 16:06 | Emergency (ER) | payer OTHER ==
[2022-12-21 16:31] VITALS: BP 122/81; PULSE 81; RESP 18; TEMP 99.4; BMI 27.6
[2022-12-21 17:04] LABS: EPITHELIAL CELLS FEW /hpf
[2022-12-21 17:19] LABS: HEMATOCRIT 38.7 % (32.4-45.2); HEMOGLOBIN 13.6 G/dL (10.7-15.3); MCH 33.6 pg (25.7-33.7); MCHC 35.1 g/dl (32.0-36.0); MEAN CELL VOLUME 95.7 fl (80-96); MEAN PLT VOLUME 8.2 fl (7.5-11.1); PLATELET COUNT 284.7 10^3/uL (134-434); RBC 4.04 10^6/uL (3.60-5.2); RDW 12.8 % (11.6-15.6); WHITE BLOOD COUNT 5.4 10^3/uL (4.0-10.8)
[2022-12-21 17:34] LABS: BILIRUBIN,TOTAL 0.5 mg/dl (0.2-1); CALCIUM 9.2 mg/dl (8.5-10); CREATININE 0.6 mg/dl (0.55-1.3); TOT PROT 7.3 g/dl (6.4-8.2)
[2022-12-21 18:10] LABS: PLATELET ESTIMATE ADEQUATE
== END 2022-12-21 18:36 | disposition home or self-care (01) ==
LOC: FER 16:06
DX: N93.9 Abnormal uterine and vaginal bleeding, unspecified (principal)
CPT/HCPCS: 36415; 80053; 81003; 81015; 84703; 85027; 86850; 86900; 86901; 87086; 87491; 87591; 99283-25

== ENCOUNTER 2023-10-09 19:16 | Emergency (ER) | payer OTHER ==
[2023-10-09 19:23] VITALS: BP 130/88; PULSE 58; RESP 16; TEMP 98.6; BMI 31.5
[2023-10-09 19:41] LABS: HCG,QUALITATIVE URINE Negative
[2023-10-09] MEDS ORDERED: SODIUM CHLORIDE 1,000 ML IV STA (19:42)
[2023-10-09] MEDS ORDERED: ONDANSETRON 4 MG/2 ML VIAL IVPUSH ONE (19:42)
[2023-10-09] MEDS ORDERED: FAMOTIDINE 20 MG/50 ML IVPB 20 MG/50 ML MG IVPB ONE ×2 (19:42→19:46)
[2023-10-09] MEDS ORDERED: ONDANSETRON 4 MG/2 ML VIAL ONE (19:46)
[2023-10-09 20:41] LABS: HEMATOCRIT 39.8 % (32.4-45.2); HEMOGLOBIN 13.6 G/dL (10.7-15.3); MCH 32.8 pg (25.7-33.7); MCHC 34.2 g/dl (32.0-36.0); MEAN CELL VOLUME 95.8 fl (80-96); MEAN PLT VOLUME 8.4 fl (7.5-11.1); PLATELET COUNT 290.5 10^3/uL (134-434); RBC 4.15 10^6/uL (3.60-5.2); RDW 13.1 % (11.6-15.6); WHITE BLOOD COUNT 8.1 10^3/uL (4.0-10.8)
[2023-10-09 20:53] LABS: PLATELET ESTIMATE ADEQUATE
[2023-10-09 20:57] LABS: ALBUMIN 4.1 g/dl (3.4-5.0); BILIRUBIN,TOTAL 0.4 mg/dl (0.2-1); CALCIUM 9.2 mg/dl (8.5-10.1); CREATININE 0.5 mg/dl (0.6-1.3); POTASSIUM 4.1 mmol/L (3.5-5.1); TOT PROT 6.8 g/dl (6.4-8.2)
== END 2023-10-09 22:53 | disposition home or self-care (01) ==
LOC: FER 19:16
PROC: 3E033GC Introduction of Other Therapeutic Substance into Peripheral Vein, Percutaneous Approach (ICD-10-PCS; principal; 2023-10-09)
PROC: 3E033GC Introduction of Other Therapeutic Substance into Peripheral Vein, Percutaneous Approach (ICD-10-PCS; 2023-10-09)
DX: K29.00 Acute gastritis without bleeding (principal); R11.2 Nausea with vomiting, unspecified; R10.13 Epigastric pain; R63.0 Anorexia; R10.2 Pelvic and perineal pain
CPT/HCPCS: 36415; 80053; 81003; 83690; 84703; 85027; 87086; 96365; 96375; 99284-25

== ENCOUNTER 2024-01-23 16:24 | Emergency (ER) | payer OTHER ==
[2024-01-23 16:38] VITALS: BP 132/83; PULSE 73; RESP 16; TEMP 98; BMI 33.1
[2024-01-23 17:54] LABS: HCG,QUALITATIVE URINE Negative
[2024-01-23] MEDS ORDERED: ACETAMINOPHEN INJECTION 100 ML IVPB ONE (18:09)
[2024-01-23 18:15] LABS: HEMATOCRIT 38.3 % (32.4-45.2); HEMOGLOBIN 13.2 G/dL (10.7-15.3); MCH 32.2 pg (25.7-33.7); MCHC 34.3 g/dl (32.0-36.0); MEAN CELL VOLUME 93.9 fl (80-96); MEAN PLT VOLUME 7.8 fl (7.5-11.1); PLATELET COUNT 310.9 10^3/uL (134-434); RBC 4.08 10^6/uL (3.60-5.2); RDW 12.9 % (11.6-15.6); WHITE BLOOD COUNT 7.4 10^3/uL (4.0-10.8)
[2024-01-23] MEDS: ACETAMINOPHEN 1000 MG/100 ML BAG IVPB ONE (18:17)
[2024-01-23] MEDS: SODIUM CHLORIDE 0.9% 1000 ML INFUS.BAG IV ONE (18:17)
[2024-01-23 18:31] LABS: ALBUMIN 4.1 g/dl (3.4-5.0); BILIRUBIN,TOTAL 0.2 mg/dl (0.2-1); CALCIUM 9.3 mg/dl (8.5-10.1); CREATININE 0.5 mg/dl (0.6-1.3); TOT PROT 6.7 g/dl (6.4-8.2)
== END 2024-01-23 20:10 | disposition home or self-care (01) ==
LOC: FER 16:24
PROC: 3E033NZ Introduction of Analgesics, Hypnotics, Sedatives into Peripheral Vein, Percutaneous Approach (ICD-10-PCS; principal; 2024-01-23)
DX: K59.00 Constipation, unspecified (principal); R10.9 Unspecified abdominal pain; R35.0 Frequency of micturition
CPT/HCPCS: 36415; 74018-TC-FY; 76830-TC; 80053; 81003; 84703; 85027; 87491; 87591; 87661; 96374; 99285-25; J0131

== ENCOUNTER 2024-04-08 18:39 | Emergency (ER) | payer OTHER ==
[2024-04-08 18:46] VITALS: BP 144/90; PULSE 107; RESP 20; TEMP 101; BMI 26.6
[2024-04-08] MEDS ORDERED: IBUPROFEN 400 MG TABLET (FP) PO ONE (18:54)
[2024-04-08] MEDS ORDERED: ONDANSETRON *ODT* 4 MG TABLET ONE (18:55)
[2024-04-08] MEDS ORDERED: DEXAMETHASONE SOD PHOSPHATE 10 MG/1 ML VIAL ONE (18:55)
[2024-04-08] MEDS ORDERED: AMOXICILLIN 250 MG CAPSULE ONE (18:55)
[2024-04-08] MEDS: ONDANSETRON *ODT* 4 MG TABLET SL ONE (18:59)
[2024-04-08] MEDS: DEXAMETHASONE LIQUID 0.5 MG/5 ML PO ONE (19:20)
[2024-04-08] MEDS: AMOXICILLIN 500 MG CAPSULE (FP) PO ONE (19:20)
[2024-04-08] MEDS: IBUPROFEN 400 MG TABLET (FP) PO ONE (19:21)
== END 2024-04-08 19:54 | disposition home or self-care (01) ==
LOC: FER 18:39
DX: J02.9 Acute pharyngitis, unspecified (principal); R11.0 Nausea; R50.9 Fever, unspecified; Z20.822 Contact with and (suspected) exposure to COVID-19
CPT/HCPCS: 0241U-QW; 87651; 99283-25; Q0162